=== PATIENT | female | born 1990 | race Caucasian/White ===

== ENCOUNTER 2019-01-23 18:25 | Emergency (ER) | payer MEDICAID, OTHER ==
[~2019-01-23] VITALS: Ht 170.2 cm; Wt 54.4 kg
[2019-01-23] MEDS ORDERED: HYDROcodone-ACET 10/325MG TAB PO ONE (20:30)
[2019-01-23 20:32] VITALS: BP 111/63
[2019-01-23] MEDS ORDERED: cefTRIAXone SOD 1,000 MG VL ONE (20:42)
[2019-01-23] MEDS ORDERED: cefTRIAXone SOD 1,000 MG VL IM ONE (20:45)
== END 2019-01-23 21:58 | disposition home or self-care (01) ==
LOC: ER 18:29
DX: S62.632A Displaced fracture of distal phalanx of right middle finger, initial encounter for closed fracture (principal); W23.0XXA Caught, crushed, jammed, or pinched between moving objects, initial encounter; Y93.89 Activity, other specified; Y99.8 Other external cause status; Y92.89 Other specified places as the place of occurrence of the external cause
CPT/HCPCS: 29130; 73140; 81025; 96372; 99284; J0696

== ENCOUNTER 2021-03-18 20:19 | Emergency (ER) | payer MEDICAID ==
[~2021-03-18] VITALS: Ht 170.2 cm; Wt 54.4 kg
[2021-03-18 21:06] VITALS: BP 99/56
== END 2021-03-18 22:20 | disposition left against medical advice (07) ==
LOC: ER 20:19
DX: J02.9 Acute pharyngitis, unspecified (principal); Z53.21 Procedure and treatment not carried out due to patient leaving prior to being seen by health care provider

== ENCOUNTER 2022-05-24 19:23 | Emergency (ER) | payer MEDICAID ==
[~2022-05-24] VITALS: Ht 162.6 cm; Wt 56.6 kg
[2022-05-24 19:28] VITALS: BP 113/60
== END 2022-05-24 22:31 | disposition left against medical advice (07) ==
LOC: ER 19:23 → EDBD 19:23 → ER 22:31
DX: M25.562 Pain in left knee (principal); M25.561 Pain in right knee; M25.551 Pain in right hip; Z53.21 Procedure and treatment not carried out due to patient leaving prior to being seen by health care provider; V89.2XXA Person injured in unspecified motor-vehicle accident, traffic, initial encounter; Y93.89 Activity, other specified; Y92.410 Unspecified street and highway as the place of occurrence of the external cause; Y99.8 Other external cause status